=== PATIENT | male | born 1970 | race Caucasian/White ===

== ENCOUNTER → 2017-12-29 | Outpatient (CLI) | payer BC ==
--- NOTE | 2017-12-29 20:16 | XR ---
EXAMINATION TYPE: XR chest 2V DATE OF EXAM: 12/29/2017 COMPARISON: 01/28/2012 HISTORY: 47-year-old male COPD and cough TECHNIQUE: Frontal and lateral views FINDINGS: The cardiomediastinal silhouette, aorta, and pulmonary vasculature are within normal limits. There is blunting of the left lateral costophrenic angle but without significant pleural effusion seen on the lateral view. Multiple skin gilles projecting over the right hemithorax. Visualized upper and mid l ungs are clear. IMPRESSION: Blunting of the left lateral costophrenic angle without any significant pleural effusion seen on the lateral view. Findings may reflect left lateral basilar pleural parenchymal scarring, new from 01/28/20 12. Short interval follow-up can be performed if this a finding that was previously unknown. Otherwis e, no acute process seen.
== END | disposition home or self-care (01) ==
LOC: RADXRMAIN 16:18
PROVIDERS: ATTEND Family Medicine
DX: J44.1 Chronic obstructive pulmonary disease with (acute) exacerbation (principal)
CPT/HCPCS: 71046

== ENCOUNTER 2018-11-20 09:23 | Day surgery (SDC) | payer BC ==
[2018-11-18 15:23] VITALS: BMI 22.8
[~2018-11-20 09:23] MED LIST: LACTATED RINGERS 1,000 ML IV SCH
[2018-11-20 09:58] VITALS: TEMP 98
[2018-11-20] MEDS ORDERED: LIDOCAINE 1% INJ 10MG/ML (20 ML MDV) ONE (10:51)
[2018-11-20] MEDS ORDERED: PROPOFOL 10 MG/ML 20 ML VIAL IV ONE (10:51)
--- NOTE | 2018-11-20 11:01 | P.PCN ---
Date of Procedure: 11/20/18 Procedure(s) Performed: BRIEF HISTORY: Patient is a 48-year-old, pleasant, white male, scheduled for an upper endoscopy as a part of value should left upper quadrant abdominal pain on and off for the last 1 year duration. He is been on Prilosec 20 mg daily In symptoms are completely resolved.. PROCEDURE PERFORMED: Esophagogastroduodenoscopy with biopsy. PREOPERATIVE DIAGNOSIS: Left upper quadrant abdominal pain. IV sedation per anesthesia. PROCEDURE: After informed consent was obtained, the patient was brought into the endoscopy unit. IV sedation was administered by Anesthesia under continuous monitoring. Initially the Olympus GIF-140 video endoscope was inserted into the mouth. Esophagus intubated without any difficulty. It was gradually advanced into the stomach and duodenum and carefully examined. The bulb and the second part of the duodenum appeared normal. The scope at this time was withdrawn to the stomach, adequately insufflated with air, and upon careful examination, mucosa of the antrum had mild gastritis and biopsies were done from this area. The body, cardia and the fundus appeared normal. The scope was then withdrawn into the esophagus. The GE junction was located at 39 cm from the incisors. There was circumferential erythema the GE junction consistent with LA grade A reflux esophagitis. The rest of the esophagus appeared normal. There were no erosions or ulcerations seen and the patient tolerated the procedure well. IMPRESSION: 1. Mild antral gastritis. 2. Circumferential erythema the GE junction but no evidence of erosions or ulcerations. RECOMMENDATIONS: The findings of this examination were discussed with the patient as well as his family. He'll follow with the biopsy results. His symptoms are more consistent with gastroesophageal reflux. He was advised to continue with Prilosec 20 mg daily and follow antireflux measures.
[2018-11-20 11:25] VITALS: BP 122/78; PULSE 77; RESP 16
== END 2018-11-20 11:37 | disposition home or self-care (01) ==
LOC: ORWHC2ENDO 09:23
PROVIDERS: ATTEND Internal Medicine Gastroenterology
DX: K29.50 Unspecified chronic gastritis without bleeding (principal); K21.0 Gastro-esophageal reflux disease with esophagitis; Z72.0 Tobacco use; Z79.899 Other long term (current) drug therapy
CPT/HCPCS: 88305; 43239; J2001; J2704

== ENCOUNTER 2020-07-13 14:27 | Emergency (ER) | payer BC ==
[2020-07-13 14:32] VITALS: BP 174/91; PULSE 94; RESP 18; TEMP 98.2
[2020-07-13] MEDS ORDERED: HYDROcodone/APAP 5-325MG 1 EACH TAB PO STA (14:53)
--- NOTE | 2020-07-13 14:53 | ED ---
Head Injury HPI - General Source: patient Mode of arrival: ambulatory Limitations: no limitations <Angel Anguiano - Last Filed: 07/13/20 19:38> <Astrid Mc - Last Filed: 07/14/20 18:30> - General Chief complaint: Head Injury Stated complaint: Head Injury Time Seen by Provider: 07/13/20 14:45 - History of Present Illness Initial comments: Patient is a 50-year-old male presenting to emergency Department with a chief complaint of a head injury. Patient states he was cutting down a branch when a tree fell down and a small branch hit him in the head. Patient reports he was initially bleeding happening in the head so he drove straight to the emergency department. States this occurred about one hour prior to arrival. He denies any loss of consciousness. No blood thinners. States his tetanus is up-to-date. Does report a headache at this time. Denies any blurry vision chest pain or shortness of breath. Denies any numbness or tingling. (Angel Anguiano) - Related Data Home Medications Medication Instructions Recorded Confirmed Omeprazole [PriLOSEC] 20 mg PO HS 11/18/18 11/20/18 Previous Rx's Medication Instructions Recorded Cephalexin [Keflex] 500 mg PO TID 5 Days #15 cap 07/13/20 Allergies/Adverse reactions: Allergies Allergy/AdvReac Type Severity Reaction Status Date / Time No Known Allergies Allergy Verified 07/13/20 14:29 Review of Systems ROS Other: All systems not noted in ROS Statement are negative. <Angel Anguiano - Last Filed: 07/13/20 19:38> ROS Other: All systems not noted in ROS Statement are negative. <Astrid Mc - Last Filed: 07/14/20 18:30> ROS Statement: Those systems with pertinent positive or pertinent negative responses have been documented in the HPI. Past Medical History Past Medical History: GERD/Reflux History of Any Multi-Drug Resistant Organisms: None Reported Additional Past Surgical History / Comment(s): POSSIBLE HIATAL HERNIA REPAIR" , MULTIPLE SKIN GRAFTS FOLLOWING AUTO ACCIDENTS Past Anesthesia/Blood Transfusion Reactions: No Reported Reaction Past Psychological History: No Psychological Hx Reported Smoking Status: Never smoker Past Alcohol Use History: Occasional Past Drug Use History: Marijuana - Past Family History Mother Family Medical History: No Reported History <Angel Anguiano - Last Filed: 07/13/20 19:38> General Exam Limitations: no limitations General appearance: alert, in no apparent distress Head exam: Present: normocephalic. Absent: atraumatic (Scalp laceration measuring approximately 15 cm in length. The wound is dirty with a foreign body. Suspected arterial bleed.), normal inspection (Injury to the head, scalp.), other (Negative Miller sign, raccoon eyes, hemotympanum.) Eye exam: Present: normal appearance, PERRL, EOMI Pupils: Present: normal accommodation ENT exam: Present: normal exam, normal oropharynx, mucous membranes moist, TM's normal bilaterally, normal external ear exam Neck exam: Present: normal inspection, full ROM. Absent: tenderness, meningismus Respiratory exam: Present: normal lung sounds bilaterally. Absent: respiratory distress, wheezes, rales Cardiovascular Exam: Present: regular rate, normal rhythm, normal heart sounds Extremities exam: Present: normal inspection, full ROM, normal capillary refill. Absent: tenderness Back exam: Present: normal inspection, full ROM. Absent: tenderness, CVA tenderness (R), CVA tenderness (L) Neurological exam: Present: alert, oriented X3, normal gait Psychiatric exam: Present: normal affect, normal mood Skin exam: Present: warm, dry, intact, normal color <Angel Anguiano - Last Filed: 07/13/20 19:38> Course Vital Signs 07/13/20 14:29 Temperature 98.2 F Pulse Rate 94 Respiratory 18 Rate Blood Pressure 174/91 O2 Sat by Pulse 98 Oximetry Procedures - Forgein Body Removal Soft Tissue Consent Obtained: verbal consent Site: scalp Anesthetic Used: lidocaine 1% Amount (mLs): 10 Foreign Body Suspected: Wood Foreign Body Removed: yes Foreign Body Removal Technique: Forceps Complications: pain, bleeding Patient Tolerated Procedure: well, no complications - Laceration Laceration #1 Consent Obtained: verbal consent Indication: laceration Site: scalp Size (cm): 15 Description: linear, contaminated, foreign body Depth: simple, single layer Sedation/Analgesia: none Anesthetic Used: lidocaine 1% Anesthesia Technique: local infiltration Amount (mls): 10 Pre-repair: wound explored, irrigated extensively, deep structures intact, foreign body removed Type of Sutures: nylon Size of Sutures: 4-0 Number of Sutures: 12 Technique: simple, interrupted, other (Figure 8 suture) Complications: bleeding Patient Tolerated Procedure: well, no complications <Angel Anguiano - Last Filed: 07/13/20 19:38> Medical Decision Making <Angel Anguiano - Last Filed: 07/13/20 19:38> <Astrid Mc - Last Filed: 07/14/20 18:30> - Medical Decision Making Patient is a 50-year-old male presenting to the emergency department with a chief complaint of branch hitting him in the head. On initial evaluation, patient has a contaminated laceration measuring approximately 15 cm in length. Not able to visualize any bone. CT of the brain and C-spine is unremarkable. Patient was given analgesia. Local injection given with lidocaine. I was able to remove small fragments of wood with a hemostat and thorough irrigation. One larger piece removed measuring approximately 1 cm. He also appeared to have an arterial bleed which was repaired with 2 [id number] sutures. In total 12 sutures were applied. No bleeding. Patient will be started on Keflex prophylactically for infection. Patient advised to return to emergency department in 10-14 days for suture removal. Strict return parameters were thoroughly discussed the patient was understanding and agreeable. Case discussed with physician. (Angel Anguiano) I was available for consultation in the emergency department. The history and physical exam were done by the midlevel provider. I was consulted not for this patients care. Chart was dictated using [employer] dictation software. Attempts were made to correct any dictation errors however some typographical errors may persist. Patient was seen during a national state of emergency due to the Covid-19 pandemic. (Astrid Mc) Disposition Is patient prescribed a controlled substance at d/c from ED?: No Time of Disposition: 16:10 <Angel Anguiano - Last Filed: 07/13/20 19:38> <Astrid Mc - Last Filed: 07/14/20 18:30> Clinical Impression: Head injury, Scalp laceration Disposition: HOME SELF-CARE Condition: Stable Instructions (If sedation given, give patient instructions): Care For Your Stitches (DC), Laceration (DC) Additional Instructions: Take prescribed medication as directed. Return to emergency Department in 10-14 days for suture removal. Follow laceration instructions. Prescriptions: Cephalexin [Keflex] 500 mg PO TID 5 Days #15 cap Referrals: Ronald Lombardi DO [Primary Care Provider] - 1-2 days
[2020-07-13] MEDS ORDERED: LIDOCAINE 1% INJ 10MG/ML (20 ML MDV) SQ ONE (14:55)
--- NOTE | 2020-07-13 15:14 | CT ---
EXAMINATION TYPE: CT brain josse wo con DATE OF EXAM: 07/13/2020 COMPARISON: None HISTORY: Head injury from falling tree branch. CT DLP: 1376 mGycm, Automated exposure control for dose reduction was used. CONTRAST: Patient injected with 0 mL of Isovue 300. CT of the brain is performed utilizing 3 mm thick sections through the posterior fossa and 3 mm thick sections through the remaining calvarium. Study is performed within 24 hours of arrival to the hospital. No abnormal hyperdensity is present to suggest an acute intracranial hemorrhage. No mass lesion is evident. No acute infarcts are evident. Ventricles and sulci are appropriate for the patient age. There is soft tissue injury over the right frontal region. No underlying fracture is evident. There is an air-fluid level mucosal thickening within the right maxillary sinus. Minimal fluid is wit hin the left maxillary sinus. Mucosal thickening is within the left sphenoid sinus and scattered ethm oid air cells. Remaining paranasal sinuses mastoid air cells are clear. IMPRESSIONS: 1. No acute intracranial process. 2. Superficial right frontal soft tissue injury. 3. Clinical correlation for maxillary sinusitis is recommended. CT cervical spine. COMPARISON: None CT of the cervical spine is performed in the axial plane at 2 mm thick sections. Reconstructed image s in the coronal, and sagittal plane are reviewed on the computer. No acute fractures are evident. There is a kyphosis centered at C4. Degenerative disc changes are present C4-5 through C7-T1. Some an terior vertebral body spurring is noted to these levels. Prevertebral space is normal. Degenerative e ndplate changes are noted at C6-7. Vertebral body heights are preserved. No spinal canal stenosis is evident. Foraminal narrowing at C5-6 from uncovertebral joint hypertrophy is noted. Left C6-C7 foraminal steno sis from uncovertebral joint hypertrophy is present. IMPRESSIONS: 1. Degenerative changes within the cervical spine. 2. No acute osseous abnormality.
== END 2020-07-13 16:18 | disposition home or self-care (01) ==
LOC: EC 14:27
DX: S01.02XA Laceration with foreign body of scalp, initial encounter (principal); K21.9 Gastro-esophageal reflux disease without esophagitis; Z79.899 Other long term (current) drug therapy; W22.8XXA Striking against or struck by other objects, initial encounter; Y93.89 Activity, other specified; Y92.009 Unspecified place in unspecified non-institutional (private) residence as the place of occurrence of the external cause
CPT/HCPCS: 72125; 70450; 99283; 12035; J2001

== ENCOUNTER 2020-11-03 08:47 | Day surgery (SDC) | payer BC ==
[2020-10-30 16:05] VITALS: BMI 23.6
[2020-11-03 09:02] VITALS: TEMP 97.5
[2020-11-03] MEDS ORDERED: LIDOCAINE 1% (10MG/ML) FOR IV START INTRADERMA ONE (09:17)
[2020-11-03] MEDS ORDERED: LIDOCAINE 1% INJ 10MG/ML (20 ML MDV) ONE (09:53)
[2020-11-03] MEDS ORDERED: PROPOFOL 10 MG/ML 20 ML VIAL IV ONE (09:53)
--- NOTE | 2020-11-03 10:08 | P.PCN ---
Date of Procedure: 11/03/20 Preoperative Diagnosis: Screening Postoperative Diagnosis: Internal hemorrhoids otherwise normal colon Procedure(s) Performed: Colonoscopy Surgeon: Rayne Smith Pathology: none sent Condition: stable Disposition: same day Indications for Procedure: 50-year-old male presents for screening colonoscopy. Risks, benefits and alte rnatives were provided to the patient. Consent was provided prior to entering the endoscopy suite. Operative Findings: Internal hemorrhoids, otherwise normal colon Description of Procedure: The patient was brought into the endoscopy suite. She was placed in the left lateral decubitus issue and an adequate sedation was achieved using conscious s edation. A digital rectal exam was armed and mild internal hemorrhoids were palpated. An endoscope was then placed in the rectum and advanced to the cecum as identified by landmarks including the appendiceal orifice and the ileocecal valve. The prep was fair. The colonoscope was then slowly withdrawn, examining for any mucosal abnormalities. The cecum, ascending, transverse, descending and sigmoid colon were visualized adequately. No large masses were noted throughout the colon. No obvious polyps were noted throughout the colon. Possible early diverticulosis in the sigmoid colon. Retroflexion was performed in the rectum and mild internal hemorrhoids were visible. Excess air was removed, the colonoscope withdrawn and the procedure terminated. The patient was then transferred to the recovery unit in stable condition. Next colonoscopy in 10 years.
--- NOTE | 2020-11-03 10:09 | P.GSHP ---
History of Present Illness H&P Date: 11/03/20 50-year-old male presents for screening colonoscopy. He has never had a colonoscopy previously. He denies any recent blood in his stool. Denies any family history of colon cancer. Denies any abdominal pain. - Review of Systems All systems: negative Past Medical History Past Medical History: COPD, GERD/Reflux History of Any Multi-Drug Resistant Organisms: None Reported Past Surgical History: Tonsillectomy Additional Past Surgical History / Comment(s): ESOPHAGUS SURGERY, SKIN GRAFT FOR LANCE Past Anesthesia/Blood Transfusion Reactions: No Reported Reaction Smoking Status: Former smoker - Past Family History Mother Family Medical History: No Reported History Medications and Allergies Home Medications Medication Instructions Recorded Confirmed Type Omeprazole [PriLOSEC] 20 mg PO HS 11/18/18 10/30/20 History Allergies Allergy/AdvReac Type Severity Reaction Status Date / Time No Known Allergies Allergy Verified 11/03/20 08:57 Surgical - Exam Osteopathic Statement: *. No significant issues noted on an osteopathic structural exam other than those noted in the History and Physical/Consult. Vital Signs Temp Pulse Resp BP Pulse Ox 97.5 F L 71 16 140/83 98 11/03/20 08:59 11/03/20 08:59 11/03/20 08:59 11/03/20 08:59 11/03/20 08:59 - General well developed, well nourished - Eyes normal ocular movement - Neck trachea midline - Respiratory normal respiratory effort - Abdomen Abdomen: soft, non tender - Psychiatric oriented to time, oriented to person, oriented to place Assessment and Plan Plan: 50-year-old male presents for screening colonoscopy. Risks, benefits and alternatives were provided to the patient. He has provided consent for the procedure. Further recommendations after procedure.
[2020-11-03 10:30] VITALS: BP 122/78; PULSE 72; RESP 18
== END 2020-11-03 10:41 | disposition home or self-care (01) ==
LOC: ORWHC2ENDO 08:47 → MERGE 10:05 → ORWHC2ENDO 10:41
PROVIDERS: ATTEND Surgery
DX: Z12.11 Encounter for screening for malignant neoplasm of colon (principal); K64.8 Other hemorrhoids; J44.9 Chronic obstructive pulmonary disease, unspecified; K21.9 Gastro-esophageal reflux disease without esophagitis; Z98.890 Other specified postprocedural states; Z87.891 Personal history of nicotine dependence; Z79.899 Other long term (current) drug therapy
CPT/HCPCS: G0121; J2001; J2704; 45378